=== PATIENT | male | born 1985 | race Caucasian/White ===

== ENCOUNTER 2018-01-01 16:52 | Emergency (ER) | payer OTHER, BC ==
[2018-01-01 16:59] VITALS: BP 133/78
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
== END 2018-01-01 18:16 | disposition home or self-care (01) ==
LOC: ER 16:52
DX: S16.1XXA Strain of muscle, fascia and tendon at neck level, initial encounter (principal); M54.2 Cervicalgia; R51 Headache; V43.52XA Car driver injured in collision with other type car in traffic accident, initial encounter; E10.9 Type 1 diabetes mellitus without complications
CPT/HCPCS: 70450; 72125; 99284